=== PATIENT | male | born 1950 | race Caucasian/White ===

== ENCOUNTER 2019-11-06 09:01 | Emergency (ER) | payer BC ==
[2019-11-06] MEDS ORDERED: Nitroglycerin 0.4 MG Tab.SL ONE (09:03)
[2019-11-06] MEDS: Nitroglycerin 0.4 MG Tab.SL SL PRN ×2 (09:05→09:18)
--- NOTE | 2019-11-06 09:09 | EDM.PDOC ---
ED HPI GENERAL MEDICAL PROBLEM - General Chief Complaint: Chest Pain Stated Complaint: HEART ISSURES?? Time Seen by Provider: 11/06/19 09:09 Source of Information: Reports: Patient History Limitations: Reports: No Limitations - History of Present Illness INITIAL COMMENTS - FREE TEXT/NARRATIVE: pt arrived having chest pain at a level of a 8. He had one nitro prior to arrival and he did not have relief. He had asa in the ambulace. He has a history about 15 years ago of having a NH and a stent at that time. Pt states he feels similar. He did do some heavy yard work yesterday. Onset: Today, Sudden Duration: Hour(s):, Other (pt has severe left chest pain and left shoulder pain. ) Location: Reports: Chest Associated Symptoms: Reports: Chest Pain, Other (left shoulder pain. ) Left Shoulder Pain Score (Numeric/FACES): 8 - Related Data Allergies Allergy/AdvReac Type Severity Reaction Status Date / Time No Known Allergies Allergy Verified 11/06/19 09:06 Home Meds: Home Meds Adalimumab [Humira Pen] 40 mg SQ ASDIRECTED 11/06/19 [History] ED ROS GENERAL - Review of Systems Review Of Systems: See Below Constitutional: Reports: No Symptoms HEENT: Reports: No Symptoms Respiratory: Reports: No Symptoms Cardiovascular: Reports: Chest Pain, Other (left shoulder pain. ) Endocrine: Reports: No Symptoms GI/Abdominal: Reports: No Symptoms : Reports: No Symptoms Musculoskeletal: Reports: No Symptoms Skin: Reports: No Symptoms Neurological: Reports: No Symptoms ED EXAM, GENERAL - Physical Exam Exam: See Below Free Text/Narrative:: pt arrived with chest pain and left shoulder pain which has not been relieved with 3 nitro . He was given dilaudid .5 for pain and he has received 4 baby asa. Exam Limited By: No Limitations General Appearance: Alert, Anxious, Moderate Distress, Other (upils are equal and reactve. ) Ears: Normal TMs Nose: Normal Inspection Throat/Mouth: Normal Inspection Head: Atraumatic Neck: Normal Inspection Respiratory/Chest: No Respiratory Distress Cardiovascular: Regular Rate, Rhythm, Other (pt is still rating his pain at a 8. ) GI/Abdominal: Soft, Non-Tender (Male) Exam: Deferred Rectal (Males) Exam: Deferred Back Exam: Normal Inspection Extremities: Normal Inspection Neurological: Alert, Oriented, Normal Cognition Psychiatric: Normal Affect, Anxious Skin Exam: Diaphoretic, Other Course - Vital Signs Last Recorded V/S: Last Vital Signs Temp 35.4 C L 11/06/19 09:12 Pulse 74 11/06/19 10:23 Resp 19 11/06/19 10:23 BP 98/53 L 11/06/19 10:23 Pulse Ox 93 L 11/06/19 10:23 - Orders/Labs/Meds Orders: Active Orders 24 hr Category Date Time Status EKG Documentation Completion [RC] ASDIRECTED Care 11/06/19 09:05 Active EKG 12 Lead [EK] Routine Ther 11/06/19 09:05 Ordered Labs: Laboratory Tests 11/06/19 11/06/19 Range/Units 09:08 09:08 WBC 10.0 (4.5-11.0) K/uL RBC 4.56 (4.30-5.90) M/uL Hgb 15.3 H (12.0-15.0) g/dL Hct 45.6 (40.0-54.0) % MCV 100 H (80-98) fL MCH 34 H (27-31) pg MCHC 34 (32-36) % Plt Count 294 (150-400) K/uL Neut % (Auto) 47 (36-66) % Lymph % (Auto) 44 (24-44) % [place] % (Auto) 7 H (2-6) % Eos % (Auto) 2 (2-4) % Baso % (Auto) 1 (0-1) % Sodium 139 L (140-148) mmol/L Potassium 3.8 (3.6-5.2) mmol/L Chloride 104 (100-108) mmol/L Carbon Dioxide 21 (21-32) mmol/L Anion Gap 17.8 H (5.0-14.0) mmol/L BUN 19 H (7-18) mg/dL Creatinine 1.3 (0.8-1.3) mg/dL Est Cr Clr Drug Dosing 56.25 mL/min Estimated GFR (MDRD) 55 L (>60) Glucose 201 H (74-106) mg/dL Calcium 8.8 (8.5-10.1) mg/dL Total Bilirubin 0.4 (0.2-1.0) mg/dL AST 16 (15-37) U/L ALT 32 (12-78) U/L Alkaline Phosphatase 106 (46-116) U/L Troponin I < 0.017 (0.000-0.056) ng/mL Total Protein 7.0 (6.4-8.2) g/dL Albumin 3.6 (3.4-5.0) g/dL Globulin 3.4 (2.3-3.5) g/dL Albumin/Globulin Ratio 1.1 L (1.2-2.2) Meds: Medications Discontinued Medications Generic Name Dose Route Start Last Admin Trade Name Freq PRN Reason Stop Dose Admin Heparin Sodium (Porcine) 4,000 units 11/06/19 09:52 11/06/19 10:01 Heparin Sodium IVPUSH 11/06/19 09:53 4,000 units ONETIME ONE Administration Hydromorphone HCl 0.5 mg 11/06/19 09:25 11/06/19 09:28 Dilaudid IVPUSH 11/06/19 09:26 0.5 mg ONETIME ONE Administration Hydromorphone HCl 0.5 mg 11/06/19 09:51 11/06/19 09:59 Dilaudid IVPUSH 11/06/19 09:52 0.5 mg ONETIME ONE Administration Sodium Chloride 1,000 mls @ 150 mls/hr 11/06/19 10:00 11/06/19 10:05 Normal Saline IV 150 mls/hr ASDIRECTED DULCE MARIA Administration Nitroglycerin 0.4 mg 11/06/19 09:04 11/06/19 09:18 Nitrostat SL 0.4 mg Q5M PRN Administration Chest Pain Ondansetron HCl 4 mg 11/06/19 09:51 11/06/19 10:00 Zofran IVPUSH 11/06/19 09:52 4 mg ONETIME ONE Administration Ticagrelor 180 mg 11/06/19 09:52 11/06/19 10:03 Brilinta PO 11/06/19 09:53 180 mg ONETIME ONE Administration - Re-Assessments/Exams Free Text/Narrative Re-Assessment/Exam: 11/06/19 09:47 pt had ischemic looking changes inferiorly and anteriorly some elevation. He Has a normal trop. He continues to have chest pain. [facility] was called and he will be transfered there Departure - Departure Time of Disposition: 10:25 Disposition: DC/Tfer to Acute Hospital 02 Reason for Transfer *Q: Primary PCI Indicated Condition: Fair Clinical Impression: Acute chest pain Referrals: Tylor Peña NP [Primary Care Provider] - Forms: ED Department Discharge Care Plan Goals: transfer to cardiology [facility]. - My Orders Last 24 Hours: My Active Orders 11/06/19 09:05 EKG Documentation Completion [RC] ASDIRECTED EKG 12 Lead [EK] Routine - Assessment/Plan Last 24 Hours: My Active Orders 11/06/19 09:05 EKG Documentation Completion [RC] ASDIRECTED EKG 12 Lead [EK] Routine
[2019-11-06] MEDS ORDERED: HYDROmorphone 0.5 MG/0.5 ML Syringe IVPUSH ONE ×2 (09:25→09:51)
[2019-11-06] MEDS ORDERED: Ondansetron 4 MG/2 ML SDV IVPUSH ONE (09:51)
[2019-11-06] MEDS ORDERED: Heparin Sodium 5,000 Units/ML Vial IVPUSH ONE (09:52)
[2019-11-06] MEDS ORDERED: Ticagrelor 90 MG Tab PO ONE (09:52)
[2019-11-06] MEDS ORDERED: Sodium Chloride 0.9% 1,000 ML IV SCH (10:00)
--- NOTE | 2019-11-06 10:04 | CR ---
CHEST: Portable 11/06/2019 at 9:38 AM CLINICAL HISTORY:Chest pain COMPARISON:None FINDINGS: The heart size, pulmonary vascularity and hilar structures are normal. No infiltrate effusion or pneumothorax is seen. There is some irregular density in the lingula which may be scarring or atelectasis. IMPRESSION: No acute cardiopulmonary process. Irregular streaky and nodular density in the lingula. This may be chronic. Upright two-view chest recommended when patient's condition allows
== END 2019-11-06 10:43 ==
LOC: JP.ED 09:01
DX: R07.9 Chest pain, unspecified (principal)
CPT/HCPCS: 36415; 71045; 80053; 84484; 85025; 93005; 96374; 96375; 99285; A9270; J1170; J1644; J2405; J7030